=== PATIENT | female | born 1975 | race Caucasian/White ===

== ENCOUNTER → 2016-08-22 | Outpatient (CLI) | payer OTHER ==
[~2016-08-22] MED LIST: BACTRIM DS DPS1 TAB PO; CLARITIN DPS10 MG PO; LEVAQUIN500 MG PO; NORCO 5-325 TA1 EACH PO; PHENTERMINE H37.5 MG PO; VALIUM-DPS2 MG PO; ZOFRAN ODT4 MG PO; [UNRECOGNIZED DRUG - OTHER] PO
== END | disposition home or self-care (01) ==
LOC: RAD.S 11:10
DX: Z12.31 Encounter for screening mammogram for malignant neoplasm of breast (principal)

== ENCOUNTER → 2016-08-24 | Outpatient (CLI) | payer OTHER | END | disposition home or self-care (01) | LOC: RAD.S 08-23 15:00 | DX: N93.9 Abnormal uterine and vaginal bleeding, unspecified (principal); N85.4 Malposition of uterus ==

== ENCOUNTER 2016-10-24 05:49 | Observation (INO) | payer OTHER ==
[~2016-10-24] VITALS: Ht 157.5 cm; Wt 86.1 kg
[~2016-10-24 05:49] MED LIST changes: -BACTRIM DS DPS1 TAB PO; -CLARITIN DPS10 MG PO; -VALIUM-DPS2 MG PO; -ZOFRAN ODT4 MG PO
[2016-10-26] MEDS ORDERED: CLARITIN DPS10 MG PO (13:12)
[2016-10-26] MEDS ORDERED: BACTRIM DS DPS1 TAB PO (13:13)
[2016-10-26] MEDS ORDERED: ZOFRAN ODT4 MG PO (13:13)
[2016-10-26] MEDS ORDERED: VALIUM-DPS2 MG PO (13:14)
--- NOTE | 2016-10-31 11:26 | OR ---
ADMIT: 10/24/2016 RM/LOC: [address] [facility] MR#: [id number] [address] [facility] [address] [place], [place] [id number] JEWELL ROACH [address] [facility] [address] [place] [address] Operative/Delivery Room Report SEX: F AGE: 41 : 1975 SURGERY DATE: 10/24/2016 SURGEON: Joey Hurt MD PREOPERATIVE DIAGNOSIS: History of previous breast cancer with genetic abnormality on genetic testing for predisposition for recurrent breast cancer. POSTOPERATIVE DIAGNOSIS: History of previous breast cancer with genetic abnormality on genetic testing for predisposition for recurrent breast cancer. PROCEDURE PERFORMED: 1. Bilateral mastectomies. 2. Bilateral reconstruction with Natrelle Inspira SRF 450cc implants. 3. Bilateral AlloDerm placement of contour medium, perforated, thick. 132 cm2 per side. DEPUTY PROBATION OFFICER: MARY GRACE Capps ESTIMATED BLOOD LOSS: Approximately 100 mL. DESCRIPTION OF PROCEDURE: After appropriate informed consent was obtained, the patient was brought to the operating room. General endotracheal anesthesia was induced. The patient's bilateral chest was prepped and draped in a sterile fashion. I had previously marked out the area of incision in the preop area with the patient standing. Because she had a previous breast reduction, I made the pattern of the incisions a little more complicated and also obligated us to remove the nipple as that would not survive given that it was no longer attached to the skin around it. So, I made a modified breast reduction type pattern along the inframammary incision and vertically excising the central pedicle and the nipple. This incision was made with the PlasmaBlade. Skin flaps were kept approximately 1 cm thick. I started on the right side. The breast was then reflected off the chest wall using the PlasmaBlade. With the specimen removed, any bleeding in the subcutaneous tissues and on the muscle was then controlled with cautery. I then reflected the pec muscle off the chest wall using the PlasmaBlade. The width of the chest wall was selected. Initially used a 415cc SRF full profile sizer on the right side and marked out the area that I wanted to sew the AlloDerm in. A medium contour perforated AlloDerm was selected, this was prepared on the back table, soaked in saline, and then brought up into the wound. I then sewed this to the new inframammary fold with a running 0 PDS suture. My gloves were then changed. We irrigated out the pocket and the subcutaneous tissues with antibiotic solution. As the 415cc sizer was just a little bit small for that pocket, I selected a 450cc implant. So, the right-sided SRF full 450cc implant was selected. Again, I had new sterile gloves on. The implant was taken, it was soaked in antibiotic solution, and it was then placed into the pocket. I completed the submuscular sub-AlloDerm pocket by sewing another 0 PDS suture along the cephalad edge of the AlloDerm to the cut edge of the muscle closing up the pocket completely. This had a nice handing glove type fit. The implant laid nicely in the pocket with no excess base. Once I was ADMIT: 10/24/2016 RM/LOC: 623 [facility] MR#: [id number] [address] [place] [id number] JEWELL ROACH [address] [place] [id number] Operative/Delivery Room Report SEX: F AGE: 41 : 1975 satisfied with hemostasis of the wound, a 15-Romansh round Allan drain was placed underneath the skin flaps, next to the inferior edge of the AlloDerm. The skin flaps were then temporarily reapproximated with skin rupert. I then went to the patient's left side and similarly did the mastectomy with this breast reduction type pattern, excising the nipple. Skin flaps were kept just a slightly thicker on this left side since she had radiation, I did not want to get things too thin and risk damaging the blood supply to this already operated and radiated side. So, with the breast dissected free from the skin flaps, the breast was reflected off the chest wall using the PlasmaBlade. Any bleeding was controlled with cautery. The muscle on this left side was again lifted off the chest wall and disattached from its inferior attachments. The temporary sizer was again placed, I marked out the area for the suturing of the AlloDerm. A new piece AlloDerm was placed on the left side, a contour medium perforated AlloDerm was selected. This was sewn along the new inframammary fold with an 0 PDS suture. The pocket was then copiously irrigated out with antibiotic solution. Gloves were changed. I took the second 450cc SRF full implant. This was placed in the submuscular sub- AlloDerm pocket and that pocket was then completed by running another 0 PDS along the edge of the muscle and sewing the AlloDerm to the edge of the muscle. The suture was tied out laterally. A Allan drain was placed through a separate stab incision. The skin incisions were temporarily closed with skin rupert. We had good symmetry between the right and left side. The implants appeared to be the right size for her, and the skin flaps appeared viable. The wounds were then closed with 3-0 Monocryl Plus in the subcuticular layer, and running 3-0 Monocryl Plus in the dermal layer, and then running 4-0 Monocryl in a subcuticular layer. Steri-Strips and sterile dressings were applied. The drains were sewn in place with a nylon suture and Bio-Patches were placed around the drain sites. The drains were placed to bulb suction. MARY GRACE Capps, assisted in this entire procedure. His help was necessary for retraction during this dissection as well as assistance with closure. Joey Hurt MD/ ken JOB #: [id number] CC: Joey Hurt, Attending Physician Azam Pollard, Family Physician Dilan Kauffman MD
== END 2016-10-25 13:20 | disposition home or self-care (01) ==
LOC: WOR 05:49 → 6PED 10:17
PROVIDERS: ADMIT Surgery
PROC: 0HBV0ZZ Excision of Bilateral Breast, Open Approach (ICD-10-PCS; principal; 2016-10-24)
DX: N60.11 Diffuse cystic mastopathy of right breast (principal); N60.12 Diffuse cystic mastopathy of left breast; Z85.3 Personal history of malignant neoplasm of breast; Z88.0 Allergy status to penicillin; Z88.1 Allergy status to other antibiotic agents; Z88.8 Allergy status to other drugs, medicaments and biological substances; Z98.890 Other specified postprocedural states